=== PATIENT | female | born 1950 | race Caucasian/White ===

== ENCOUNTER 2016-08-09 18:10 | Emergency (ER) | payer OTHER ==
[~2016-08-09] VITALS: Ht 154.9 cm; Wt 51.3 kg
--- NOTE | ~2016-08-09 | EKG ---
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1950 Requested By: Alex Smith Order Number: [id number] MD: Ruben Haile Measurements Intervals [place] Rate: 92 P: -35 VA: 131 QRS: -33 QRSD: 114 T: 37 QT: 424 QTc: 525 Interpretive Statements Sinus rhythm Borderline IVCD with LAD Inferior infarct, old Prolonged QT interval Compared to ECG 12/29/2015 18:32:08 ST and T-wave abnormality is less pronounced Electronically Signed On 08-10-2016 8:52:09 CDT by Ruben Haile [email or web address] <ELECTRONICALLY SIGNED> By: Ruben Haile MD, [facility] 08/10/16 0852 [id number] Ruben Haile MD, [facility] /EPI
[~2016-08-09 18:10] MED LIST: ACIDOPHILUS LA1 EACH PO; ALBUTEROL INHAL17 GM INH; ALBUTEROL2.5 MG/31 INH; ALDACTONE50 MG PO; ALLOPURINOL 30300 M1; ALLOPURINOL 30300 M1 PO; ALPRAZOLAM 0.0.25 M1 PO; ALPRAZOLAM ER1 MG PO; ALPRAZOLAM PO; ALPRAZOLAM1 M1; ALPRAZOLAM1 M1 PO; AMBIEN 5 MG TABL5 M1 PO; AMLODIPINE BESY10 MG; AMLODIPINE BESY10 MG PO; AMOX TR-K CLV1 EAC4 PO; ASA81BEC PO; ASACOL HD800 MG PO; ASPIRIN EC81 M1 PO; AUGMENTIN 875875 M1 PO; B-12 DOTS500 MCG; B-COMPLEX PLUS1 EACH PO; BACLOFEN 10MG T10 MG PO; BACTRIM DS TAB1 EACH PO; BETADINE30 ML TOP; BROMDAY1.7 ML INTRAOCULR; CARAFATE 1 GM TA1 G1 PO; CARVEDILOL12.5 MG PO; CARVEDILOL6.25 MG PO; CEFTIN 250 MG250 MG PO; CELEXA 20 MG TA20 M1; CELEXA 20 MG TA20 M1 PO; CELEXA20 MG PO; CELEXA40 MG PO; CENTRUM SILVER1 EAC2 PO; CENTRUM SILVER1 EAC4 PO; CIPROFLOXACIN500 M1 PO; CITALOPRAM HBR40 MG PO; CLEOCIN HCL150 MG PO; CLONIDINE HCL0.2 M2; CLONIDINE HCL0.2 M2 PO; CLONIDINE0.1 PO; COLACE100 MG PO; COREG PO; COUMADIN 2 MG TA2 M1 PO; DEEP SEA NASAL44 M1 NASAL; DEMADEX20 MG PO; DIALYVITE V5000 UNIT PO; DIFLUCAN150 MG PO; DOCUSATE SODIU100 MG PO; DOXYCYCLINE 10100 M1 PO; DOXYCYCLINE 10100 MG PO; DUONEB 2.5-0.5 M3 ML INH; ECONAZOLE; EFFEXOR XR75 MG PO; ENOXAPARIN30 MG/0.1 SUBQ; ENOXAPARIN30 MG/0.3 SUBQ; ENSURE237 ML PO; FERROUS SULFAT325 MG PO; FLAGYL500 MG PO; FLOXIN OTI0.3 %/5 M1 INTRAOCULR; FOLIC ACID0.4 MG PO; FOLIC ACID1 MG PO; FUROSEMIDE 40 M40 M1 PO; FUROSEMIDE 40 M40 MG PO; GENTAMICIN 0.1%15 G2 TOP; GINSENG100 MG PO; HYDRALAZINE 2525 MG PO; HYDROCERIN CREA1 JAR TOP; HYDROCHLOROTH12.5 M1 PO; HYDROCHLOROTHIA25 M2 PO; HYDROCODON-ACE1 EACH PO; HYDROCODONE-AP1 EA10 PO; IRON325 PO; K-DUR 20 MEQ T20 MEQ PO; K-DUR10 MEQ PO; KADIAN10 MG PO; KLOR-CON 10 ER10 MEQ OR; KLOR-CON 10 ER10 MEQ PO; KLOR-CON 1010 MEQ PO; KLOR-CON PO; LASIX 20 MG TAB20 MG PO; LASIX 40 MG TAB40 M2 PO; LEVAQUIN 750 M750 MG PO; LEVOTHYROXIN0.025 MG PO; LISINOPRIL10 MG PO; LISINOPRIL20 MG PO; LISINOPRIL40 MG PO; LISINOPRIL5 MG PO; LOPERAMIDE 2 MG2 M1 PO; LOPRESSOR25 PO; LORTAB 10-3251 EACH PO; LORTAB 5 MG/5001 TA1; LORTAB 5 MG/5001 TA1 PO; LORTAB 5-500 T1 EAC1 PO; MACROBID 100 M100 M1; MACROBID 100 M100 M1 PO; MACROBID 100 M100 M2 PO; MAG-AL PLUS SUS30 ML PO; MAG-OX 400 TAB400 M1 PO; MAG-OXIDE400 MG PO; MECLIZINE 25 MG25 M1; MECLIZINE 25 MG25 M1 PO; MEDROLDOSEPACK PO; METOLAZONE 5 MG5 MG PO; METOPROLOL-HCT1 EAC1 PO; MOTION RELIEF25 MG PO; MS CONTIN15 MG PO; MUCINEX TA600 MG/TA2 PO; NASAL SPRAY30 ML; NEURONTIN 300300 M1 PO; NEXIUM40 MG; NICOTINE TRANSD14 M1 TRANSDERM; NICOTINE TRANSD21 M1; NICOTINE TRANSD21 M1 TRANSDERM; NORCO 10-325 T1 EACH; NORCO 10-325 T1 EACH PO; NORCO 5-325 TA1 EACH PO; NORVASC2.5 MG PO; NYAMYC15 GM TOP; NYSTATIN 1100000 U/M SW&SWALLOW; NYSTATIN-TRIAMC15 G1 TP; NYSTATIN1 EA10 TOP; OMEGA-31000 M1 PO; OMEPRAZOLE20 M1 PO; OMEPRAZOLE20 M2; OMEPRAZOLE20 M2 PO; ONDANSETRON HCL4 M2; ONDANSETRON ODT4 MG PO; ORADENT 0.1% DEN5 G1; PANTOPRAZOLE SO40 MG PO; PERCOCET 10-321 EACH PO; PERCOCET PO; PHENERGAN 25 MG25 M1 PO; PHOSPHA NEUTRAL1 TA1 PO; POTASSIUM20 PO; PRED FORTE 1% EY5 M1 INTRAOCULR; PREDNISONE 10 M10 M1 PO; PREDNISONE 10 M10 MG; PREDNISONE 20 M20 MG PO; PREDNISONE 5 MG5 MG PO; PREDNISONE INTRAOCULR; PREVALITE PACKE1 PKT PG; PREVALITE PACKE1 PKT PO; PRILOSEC 20 MG20 MG PO; PRILOSEC20 MG PO; PROAIR HFA8.5 GM; PROAIR HFA8.5 GM IH; PROAIR HFA8.5 GM INH; PROAIR HFA8.5 GM PO; PROMETHAZINE HC25 M1 PO; PROMETHEGAN25 MG RC; PROTONIX40 M1 PO; RESTORIL15 MG PO; RONDEC-DM SYRU120 ML PO; ROXANOL 20 M20 MG/ML GT; SANTYL OINTMENT30 G1 TOP; SANTYL OINTMENT30 G1 TP; SENNA PO; SPIRIVA; SPIRIVA INH; SYMBICORT160 MCG/4. INH; TAMSULOSIN HCL0.4 MG PO; TEARS NATURALE1 EACH OPHTHALMIC; TOPROL XL100 MG PO; TRAMADOL 50 MG50 MG PO; TRANDATE 200 M200 M1; TRANDATE 200 M200 M1 PO; TRIAMCINOLONE A80 G2; TRINATE TABLET1 TAB PO; TYLENOL325 MG PO; VANCOMYCIN100 MG/ML PO; VITAMIN B-1100 M1; VITAMIN B-1100 M1 PO; VITAMIN B-6100 MG PO; VITAMINC500 PO; XANAX 0.25 MG0.25 MG PO; XANAX 0.5 MG0.5 MG PO; XANAX XR1 MG PO; XANAX1 MG PO; XOPENEX HF1 UDINHALE IH; ZAROXOLYN 5MG TA5 M1 PO; ZOCOR 10 MG TAB10 MG PO; ZOFRAN ODT4 MG PO; ZPAK PO; ZYVOX600 MG/300 IVPB
[2016-08-09 18:42] LABS: HEMATOCRIT 34.9 % (37.0-47.0); HEMOGLOBIN 12.2 gm/dL (12.0-15.0); MCH 37.9 pg (26.0-34.0); MCV 108.1 fL (80.0-100.0); PLATELET COUNT 202 thou/uL (150-400); RBC 3.23 mil/uL (4.20-5.00); RDW 19.1 % (10.5-14.5); WBC 7.2 thou/uL (4.0-11.0)
[2016-08-09 18:45] LABS: CALCIUM 9.9 mg/dL (8.5-10.1); CREATININE 1.6 mg/dL (0.6-1.0); POTASSIUM 3.6 mmol/L (3.5-5.1)
[2016-08-09 18:47] LABS: MANUAL DIFF YES
[2016-08-09 18:52] LABS: INR 1.1; PROTIME 11.7 Seconds (9.3-11.4)
[2016-08-09 19:19] LABS: ANISOCYTOSIS 1+; MACROCYTES 1+; TOTAL CELL COUNT 100
== END 2016-08-09 20:30 | disposition home or self-care (01) ==
LOC: ER 18:10
PROVIDERS: Emergency Medicine
DX: K92.2 Gastrointestinal hemorrhage, unspecified (principal); I12.9 Hypertensive chronic kidney disease with stage 1 through stage 4 chronic kidney disease, or unspecified chronic kidney disease; N18.9 Chronic kidney disease, unspecified; E78.5 Hyperlipidemia, unspecified; J44.9 Chronic obstructive pulmonary disease, unspecified; F41.9 Anxiety disorder, unspecified; F32.9 Major depressive disorder, single episode, unspecified; F17.210 Nicotine dependence, cigarettes, uncomplicated; F10.99 Alcohol use, unspecified with unspecified alcohol-induced disorder; G89.29 Other chronic pain; Z87.19 Personal history of other diseases of the digestive system; Z98.890 Other specified postprocedural states; Z86.73 Personal history of transient ischemic attack (TIA), and cerebral infarction without residual deficits; Z90.710 Acquired absence of both cervix and uterus; Z90.49 Acquired absence of other specified parts of digestive tract; Z88.1 Allergy status to other antibiotic agents; Z88.8 Allergy status to other drugs, medicaments and biological substances

== ENCOUNTER 2016-09-01 10:13 | Emergency (ER) | payer OTHER ==
[~2016-09-01] VITALS: Ht 154.9 cm; Wt 53.5 kg
[2016-09-01 10:54] LABS: ABSOLUTE NEUTROPHILS 5.3 thou/uL (1.4-8.2); BASOPHILS 1.2 % (0.0-2.0); EOSINOPHILS 3.7 % (0.0-3.0); HEMATOCRIT 30.3 % (37.0-47.0); HEMOGLOBIN 10.3 gm/dL (12.0-15.0); LYMPHOCYTES 13.1 % (24.0-44.0); MCV 114.7 fL (80.0-100.0); MONOCYTES 9.7 % (1.0-8.0); PLATELET COUNT 215 thou/uL (150-400); POLYS 72.3 % (36.0-66.0); RBC 2.64 mil/uL (4.20-5.00); RDW 17.7 % (10.5-14.5); WBC 7.3 thou/uL (4.0-11.0)
[2016-09-01 11:01] LABS: MANUAL DIFF NO
[2016-09-01 11:13] LABS: CALCIUM 9.1 mg/dL (8.5-10.1); CREATININE 2.5 mg/dL (0.6-1.0); POTASSIUM 4.2 mmol/L (3.5-5.1)
[2016-09-01 11:16] LABS: INR 1.1; PROTIME 11.2 Seconds (9.3-11.4)
[2016-09-01 11:18] LABS: ALBUMIN 3.5 g/dL (3.4-5.0); TOTAL BILIRUBIN 0.3 mg/dL (<0.1-1.0); TOTAL PROTEIN 6.9 g/dL (6.4-8.2)
[2016-09-01 12:24] LABS: ANISOCYTOSIS 1+; MACROCYTES 3+; PLATELET ESTIMATE NORMAL
== END 2016-09-01 13:27 | disposition home or self-care (01) ==
LOC: ER 10:13
PROVIDERS: Physician Assistant
DX: E87.1 Hypo-osmolality and hyponatremia (principal); I12.9 Hypertensive chronic kidney disease with stage 1 through stage 4 chronic kidney disease, or unspecified chronic kidney disease; N18.9 Chronic kidney disease, unspecified; N17.9 Acute kidney failure, unspecified; E78.00 Pure hypercholesterolemia, unspecified; J44.9 Chronic obstructive pulmonary disease, unspecified; F32.9 Major depressive disorder, single episode, unspecified; F41.9 Anxiety disorder, unspecified; F17.210 Nicotine dependence, cigarettes, uncomplicated; F10.99 Alcohol use, unspecified with unspecified alcohol-induced disorder; Z88.8 Allergy status to other drugs, medicaments and biological substances; Z86.73 Personal history of transient ischemic attack (TIA), and cerebral infarction without residual deficits; Z98.890 Other specified postprocedural states; Z88.1 Allergy status to other antibiotic agents

== ENCOUNTER 2016-11-09 17:16 | Inpatient (IN) | payer OTHER ==
[~2016-11-09] VITALS: Ht 154.9 cm; Wt 52.4 kg
--- NOTE | ~2016-11-09 | EKG ---
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
[2016-11-09 17:45] VITALS: BP 117/93
[2016-11-09 18:24] LABS: HEMATOCRIT 34.3 % (37.0-47.0); HEMOGLOBIN 11.8 gm/dL (12.0-15.0); MCH 40.6 pg (26.0-34.0); MCHC 34.3 g/dL (28.0-37.0); MCV 118.4 fL (80.0-100.0); PLATELET COUNT 248 thou/uL (150-400); WBC 8.1 thou/uL (4.0-11.0)
[2016-11-09 18:33] LABS: ANION GAP 13 mmol/L (7-16); BUN 46 mg/dL (7-18); CALCIUM 9.7 mg/dL (8.5-10.1); CHLORIDE 88 mmol/L (98-107); CO2 25 mmol/L (21-32); CREATININE 4.5 mg/dL (0.6-1.0); GLUCOSE 106 mg/dL (74-106); POTASSIUM 3.7 mmol/L (3.5-5.1); SODIUM 126 mmol/L (136-145)
[2016-11-09 18:41] LABS: ALBUMIN 3.7 g/dL (3.4-5.0); ALKALINE PHOSPHATASE 95 U/L (46-116); DIRECT BILIRUBIN 0.1 mg/dL (<0.1-0.3); MANUAL DIFF YES; SGOT 30 U/L (15-37); SGPT 12 U/L (30-65); TOTAL BILIRUBIN 0.3 mg/dL (<0.1-1.0); TOTAL PROTEIN 7.3 g/dL (6.4-8.2); TROPONIN-I < 0.04 ng/mL (<0.04-0.07)
[2016-11-09 19:07] LABS: ABSOLUTE NEUTROPHILS 6.4 thou/uL (1.4-8.2); TOTAL CELL COUNT 100
[2016-11-09 19:08] LABS: ANISOCYTOSIS 1+; MACROCYTES 3+
[2016-11-09 19:18] LABS: APTT 29.9 Seconds (24.5-32.8); INR 1.1; PROTIME 11.4 Seconds (9.3-11.4)
[2016-11-09 19:35] LABS: URINE BILIRUBIN NEGATIVE (Negative); URINE BLOOD TRACE (Negative); URINE COLOR YELLOW; URINE GLUCOSE-RANDOM* NEGATIVE (Negative); URINE KETONES NEGATIVE (Negative); URINE NITRITE NEGATIVE (Negative); URINE PROTEIN (DIPSTICK) TRACE (Negative); URINE SPECIFIC GRAVITY 1.015 (1.003-1.035); URINE UROBILINOGEN 0.2 E.U./dl (0.2-1.0)
[2016-11-09 19:41] LABS: BACTERIA >30 Many /HPF (None Seen); CASTS None Seen /LPF (None Seen); CRYSTALS None Seen /LPF (None Seen); SQUAMOUS 0-3 Few /LPF (0-3); URINE RBC None Seen /HPF (0-2)
[2016-11-09 20:47] VITALS: BP 96/37
[2016-11-09 22:36] VITALS: BP 114/57
[2016-11-10] VITALS (8 sets, daily range): BP systolic 79–124; BP diastolic 52–74
[2016-11-10 06:13] LABS: HEMATOCRIT 30.1 % (37.0-47.0); HEMOGLOBIN 10.5 gm/dL (12.0-15.0); MCH 41.3 pg (26.0-34.0); MCHC 34.9 g/dL (28.0-37.0); MCV 118.6 fL (80.0-100.0); RBC 2.54 mil/uL (4.20-5.00); RDW 15.9 % (10.5-14.5); WBC 6.5 thou/uL (4.0-11.0)
[2016-11-10 06:26] LABS: CALCIUM 8.5 mg/dL (8.5-10.1); CREATININE 4.2 mg/dL (0.6-1.0); POTASSIUM 3.5 mmol/L (3.5-5.1)
[2016-11-11] VITALS: BP 113/52
[2016-11-11 04:15] VITALS: BP 104/65
[2016-11-11 06:43] LABS: ALBUMIN 2.8 g/dL (3.4-5.0); CALCIUM 8.1 mg/dL (8.5-10.1); PHOSPHORUS 2.8 mg/dL (2.5-4.9); POTASSIUM 3.4 mmol/L (3.5-5.1)
[2016-11-11 07:46] VITALS: BP 106/68
[2016-11-11 14:40] VITALS: BP 137/67
[2016-11-11 18:56] VITALS: BP 161/77
[2016-11-11 20:05] VITALS: BP 157/81
[2016-11-12] VITALS (8 sets, daily range): BP systolic 117–184; BP diastolic 39–91
[2016-11-12 06:27] LABS: ALBUMIN 2.8 g/dL (3.4-5.0); CALCIUM 8.3 mg/dL (8.5-10.1); CREATININE 1.1 mg/dL (0.6-1.0); PHOSPHORUS 1.9 mg/dL (2.5-4.9); POTASSIUM 3.1 mmol/L (3.5-5.1)
[2016-11-12] MEDS ORDERED: CEFDINIR300 MG PO (10:37)
[2016-11-13 04:20] VITALS: BP 168/95
[2016-11-13 07:54] VITALS: BP 109/76
[2016-11-13 11:07] VITALS: BP 175/98
[2016-11-13 15:08] VITALS: BP 140/83
[2016-11-13 19:30] VITALS: BP 165/85
[2016-11-14 04:34] VITALS: BP 113/74
[2016-11-14 08:08] VITALS: BP 137/71
[2016-11-14 14:00] VITALS: BP 145/85
[2016-11-14 16:45] VITALS: BP 150/105
[2016-11-14 19:30] VITALS: BP 139/72
[2016-11-15 07:30] VITALS: BP 161/80
[2016-11-15 16:12] LABS: UR AMINO LEVULINIC ACID 0.1 mg/24 hr (0.5-5.1); UR AMINO LEVULINIC ACID 0.3 mg/L (Undefined)
== END 2016-11-15 15:21 | disposition short-term general hospital (02) | DRG 682 ==
LOC: ER 17:16 → EROBS 19:21 → 4W 19:21
PROVIDERS: Hospitalist; Nurse Practitioner; Nurse Practitioner Acute Care
DX: N17.9 Acute kidney failure, unspecified (principal); G92 Toxic encephalopathy; E87.0 Hyperosmolality and hypernatremia; N39.0 Urinary tract infection, site not specified; I12.9 Hypertensive chronic kidney disease with stage 1 through stage 4 chronic kidney disease, or unspecified chronic kidney disease; E78.5 Hyperlipidemia, unspecified; J44.9 Chronic obstructive pulmonary disease, unspecified; F41.9 Anxiety disorder, unspecified; F32.9 Major depressive disorder, single episode, unspecified; G89.29 Other chronic pain; M54.5 Low back pain; K70.30 Alcoholic cirrhosis of liver without ascites; F17.210 Nicotine dependence, cigarettes, uncomplicated; D64.9 Anemia, unspecified; L40.9 Psoriasis, unspecified; N18.3 Chronic kidney disease, stage 3 (moderate); I95.9 Hypotension, unspecified; Z86.73 Personal history of transient ischemic attack (TIA), and cerebral infarction without residual deficits; Z89.421 Acquired absence of other right toe(s); Z79.899 Other long term (current) drug therapy; Z88.1 Allergy status to other antibiotic agents; Z88.8 Allergy status to other drugs, medicaments and biological substances; Z90.710 Acquired absence of both cervix and uterus
CPT/HCPCS: 10045